=== PATIENT | male | born 1995 | race Caucasian/White ===

== ENCOUNTER 2023-10-03 03:32 | Emergency (ER) | payer MEDICAID, SELFPAY ==
[2023-10-03 03:32] VITALS: BP 163/94; PULSE 97; RESP 17; TEMP 36.6; O2SAT 98; BMI 37.7
--- NOTE | 2023-10-03 03:38 | RAD_ITS ---
STUDY: X-RAY CHEST REASON FOR EXAM: Male, 28 years old. Chest pain TECHNIQUE: PA and lateral views of the chest. COMPARISON: May 08, 2016 chest x-ray FINDINGS: The lungs are clear and expanded. There is no demonstrated pleural abnormality. Normal size heart. Normal mediastinum and erna. Normal visualized pulmonary arteries. Normal visualized aortic arch and descending thoracic aorta. There are mild degenerative changes of the visualized thoracic spine. Normal visualized ribs, clavicles, and shoulders. There is no demonstrated abnormality of the visualized soft tissue structures of the upper abdomen. RAD/Chest PA and Lateral IMPRESSION: Degenerative changes, as described above. No demonstrated acute cardiopulmonary process. Electronically Signed: Perla Chaves MD at 3:54 EDT ,
--- NOTE | 2023-10-03 03:47 | EKG12_ITS ---
Test Reason : CP Blood Pressure : / mmHG Vent. Rate : 101 BPM Atrial Rate : 101 BPM P-R Int : 154 ms QRS Dur : 092 ms QT Int : 338 ms P-R-T Axes : 049 006 051 degrees QTc Int : 438 ms Sinus tachycardia Otherwise normal ECG Confirmed by ERON FARRELL, LISA ([id number]), supervising editor news reel FRANCO HERNANDEZ ([id number]) on 10/14/2023 7:35:15 AM Referred By: ISAURO Confirmed By:SHANNA LITTLEJOHN MD
[2023-10-03 03:48] LABS: Absolute Lymphocyte Count 2.98 X10^3/uL (0.83-4.51); Absolute Neutrophil Count 8.6 X10^3/uL (2.0-7.7); Basophil# 0.09 X10^3/uL; Basophil% 0.7 % (0-1); Eosinophil# 0.39 X10^3/uL; Hematocrit 51.2 % (40-54); Hemoglobin 16.8 g/dL (13.0-16.5); Lymphocyte # 2.98 X10^3/ul (0.83-4.51); Lymphocyte % 22.7 % (19-41); Mean Corp Hgb Conc 32.8 g/dL (32-36); Mean Corpuscular Volume 91.4 fL (80-94); Mean Platelet Vol. 10.5 fl (6.2-12.0); Monocyte# 0.94 X10^3/uL; Monocyte% 7.2 % (0-10); NRBC Flagged by Analyzer 0 % (0-5); Neutrophil # 8.62 X10^3/uL (2.7-7.7); Neutrophil % 65.8 % (47-70); Platelet Count 294 K/mm3 (150-450); RBC Distribution Width CV 12.8 % (11.6-14.6); RBC Distribution Width SD 42.7 fl (35.1-43.9); White Blood Count 13.1 K/mm3 (4.4-11.0)
[2023-10-03 04:07] LABS: Anion Gap 5 (5-15); BUN 15 mg/dL (7-18); BUN/Creat Ratio 13.3 RATIO (10-20); Chloride 104 mmol/L (98-107); Creatinine, Serum 1.13 mg/dL (0.70-1.30); EST Glomerular Filtration Rate 81 mL/min (>60); Est Glom Filt Rate - Afr Amer 98 mL/min (>60); Glucose 143 mg/dL (74-106); Magnesium 2.1 mg/dL (1.6-2.6); Potassium 3.8 mmol/L (3.5-5.1); Sodium Level 137 mmol/L (136-145); Troponin-I HS 5 pg/mL (3.0-78.0)
[2023-10-03] MEDS: Aspirin 325 MG Tablet PO (04:22)
[2023-10-03 05:12] VITALS: BP 143/80; PULSE 94; RESP 18; O2SAT 96
--- NOTE | 2023-10-03 05:37 | EDS_ITS ---
HPI History of Present Illness Chief Complaint: Chest Pain Informant: patient and spouse/S.O. Narrative Narrative: Patient is a 28-year-old male with recently diagnosed hypertension. He states that he has had midsternal chest discomfort for multiple hours. He denies any nausea vomiting or diaphoresis associated with this. He denies any illicit drug use. He denies any history of DVT/PE. He states over that his mother did have a heart attack in her late 30s and with his chest discomfort he is concerned for this and therefore comes in for evaluation. [facility] Home Medications lisinopril 20 mg tablet 20 mg PO DAILY #30 tabs 10/03/23 [Rx Last Taken Unknown] Allergy/AdvReac Type Severity Reaction Status Date / Time amoxicillin Allergy Rash Verified 05/08/16 03:19 Penicillins [PCN] Allergy Rash Verified 05/08/16 03:19 Social History Smoking Status: Unknown if ever smoked ROS ROS ED Constitutional Constitutional ED: Denies chills or fever(s) Eyes Eyes: Denies change in vision ENT ENT ED: Denies sore throat Cardiovascular Cardiovascular: Reports chest pain; Denies palpitations or racing heartbeat Respiratory/Chest Respiratory/Chest: Denies cough or dyspnea Gastrointestinal Gastrointestinal: Denies abdominal pain, diarrhea, nausea or vomiting Genitourinary Genitourinary ED: Denies dysuria Musculoskeletal Musculoskeletal: Denies back pain or myalgias Integumentary Denies rash Neurologic Neurologic: Denies headache(s) Hematologic/Lymphatic Hematologic/Lymphatic: Denies easy bleeding or easy bruising EXAM Physical Exam Const Vital Signs: 10/03/23 03:32 10/03/23 03:32 10/03/23 05:12 Temperature 97.8 F Temperature Source Temporal Pulse Rate 97 94 Respiratory Rate 17 18 Respiratory Effort Normal Non-Labored Blood Pressure 163/94 H 143/80 H Blood Pressure Mean 117 101 Pulse Ox 98 96 Oxygen Delivery Method Room Air Room Air 10/03/23 06:13 Temperature Temperature Source Pulse Rate 83 Respiratory Rate 14 Respiratory Effort Blood Pressure 138/82 H Blood Pressure Mean 100 Pulse Ox 93 Oxygen Delivery Method Room Air Positive well nourished, well developed and obese General Appearance ED: well developed; Negative for pallor Nutritional Appearance: obese HEENT HEENT Narrative: Normocephalic atraumatic Eyes PERRL and EOMs intact bilaterally General Eye ED: Negative for scleral icterus Neck supple and no JVD Chest Wall Chest Narrative: There is mild reproducible anterior chest wall pain with palpation without bony deformity or crepitance Resp normal respiratory effort and clear to auscultation bilaterally Cardio regular rate and regular rhythm Rate: other Other Details: Heart is regular rate and rhythm without murmurs rubs or gallops Radial and carotid pulses are equal and symmetric GI normal to inspection, nondistended, normoactive bowel sounds, non-tender, non- distended and no masses GI Narrative: Abdomen is soft nontender nondistended with normal active bowel sounds. No voluntary guarding or rigidity No pulsatile mass or fluid wave Auscultation: normoactive bowel sounds Palpation: soft Extremity normal to inspection Extremity Narrative: No asymmetric edema no pitting edema negative Homans' sign bilaterally Neuro oriented x3, CN's II-XII intact bilaterally and no sensory deficits noted Sensorium / Orientation: alert Motor Exam: strength 5/5 throughout Psych mental status grossly normal Skin no rashes or lesions noted General Skin Exam: Negative for jaundice or pallor MDM MDM MDM Narrative Medical decision making narrative: Patient presented to the ER mildly hypertensive otherwise with stable vitals. He reported midsternal chest discomfort but did not have nausea vomiting or diaphoresis. He has newly diagnosed hypertension and smokes and has family history of heart disease at a relatively young age and as differential diagnosis includes acute coronary syndrome versus pericarditis versus pneumonia versus pneumothorax I did elect to perform a basic cardiac work-up. As the patient did not have any hypoxia or pleuritic chest pain I do not feel the need for a D- dimer. Chest x-ray revealed no acute lung pathology and without pain radiating to his back for widening of the mediastinum I do not feel need for a CTA. The patient was given aspirin secondary to his complaint of chest discomfort and without any other medication blood pressure spontaneously improved. Initial and 2-hour delta troponin were obtained which remained flat going against acute coronary syndrome. Therefore at this time as EKG does not show ischemic changes troponins are normal going against acute coronary syndrome and he does not have acute kidney injury or pneumonia or pneumothorax there is no need for further evaluation he is otherwise safe for discharge History & Record Review Discussion w/independent historian: Patient Lab Data Attestation: I reviewed the patient's lab results. Labs: Laboratory Results - last 24 hr 10/03/23 10/03/23 03:40 05:44 WBC 13.1 H RBC 5.60 Hgb 16.8 H Hct 51.2 MCV 91.4 MCH 30.0 MCHC 32.8 RDW Std Deviation 42.7 RDW Coeff of Mireille 12.8 Plt Count 294 MPV 10.5 Immature Gran % (Auto) 0.600 Neut % (Auto) 65.8 Lymph % (Auto) 22.7 Garden % (Auto) 7.2 Eos % (Auto) 3.0 Baso % (Auto) 0.7 Absolute Neuts (auto) 8.6 H Absolute Lymphs (auto) 2.98 Nucleated RBC % 0 Sodium 137 Potassium 3.8 Chloride 104 Carbon Dioxide 28.0 Anion Gap 5 BUN 15 Creatinine 1.13 Estim Creat Clear Calc 98.70 Est GFR (MDRD) Af Amer 98 Est GFR (MDRD) Non-Af 81 BUN/Creatinine Ratio 13.3 Glucose 143 H Calcium 9.0 Magnesium 2.1 Troponin I High Sens 5 5 Radiography Diagnostic Testing: Clinical Impression(s) from Imaging Studies Chest X-Ray 10/03/23 03:38 IMPRESSION: Degenerative changes, as described above. No demonstrated acute cardiopulmonary process. Electronically Signed: Perla Chaves MD at 3:54 EDT Reading Location ID and State: [facility] / [place] Tel , Service support , 2 view chest x-ray as interpreted by the emergency medicine physician reveals no acute infiltrate pneumothorax pleural effusion or widening of the mediastinum Discharge Plan Triage Chief Complaint: Chest Pain ED Provider: Warren Spencer Dx/Rx/DC Orders Clinical Impression: Nonspecific chest pain, Hypertension Instructions: ED Chest Pain, Uncertain Cause, ED Hypertension New Begin Treatment Prescriptions: New lisinopril 20 mg tablet 20 mg PO DAILY Qty: 30 1RF Primary Care Provider: Care Physician,No Primary Referrals: Alen Colon MD [Med Staff - Active Staff] - Care Physician,No Primary [Primary Care Provider] - Activity Restrictions/Additional Instructions: Please begin taking lisinopril as directed to control your hypertension. Continue to check your blood pressure once or twice a week to ensure the medication is effective. Follow-up with your family doctor and/or Dr. Colon for repeat evaluation and return to the ER should you have any further concerns or worsening of symptoms Disposition Disposition: Home, Self Care
[2023-10-03 06:06] LABS: Troponin-I HS 5 pg/mL (3.0-78.0)
[2023-10-03 06:13] VITALS: BP 138/82; PULSE 83; RESP 14; O2SAT 93
[2023-10-03 06:28] VITALS: BP 143/77; PULSE 80; RESP 16; O2SAT 92
== END 2023-10-03 06:29 | disposition home or self-care (01) ==
PROVIDERS: Emergency Provider Emergency Medicine; Visit Provider Emergency Medicine
DX: R07.9 Chest pain, unspecified (principal); I10 Essential (primary) hypertension; F17.200 Nicotine dependence, unspecified, uncomplicated; Z79.899 Other long term (current) drug therapy; E66.9 Obesity, unspecified
CPT/HCPCS: 71046; 80048; 83735; 84484; 85025; 93005; 99283; A4216

== ENCOUNTER 2023-12-20 00:59 | Emergency (ER) | payer MEDICAID, SELFPAY ==
[2023-12-20 01:00] VITALS: BP 181/93; PULSE 119; RESP 19; TEMP 37.1; O2SAT 95; BMI 35.4
--- NOTE | 2023-12-20 01:13 | RAD_ITS ---
INDICATION: chest pain EXAMINATION/TECHNIQUE: X-RAY - XR Chest 1 View AP portable. 1:17 AM COMPARISON: 10/03/2023 FINDINGS: LINES/DEVICES: None. LUNGS: No consolidation. No pneumothorax. MEDIASTINUM: Unremarkable. CARDIAC SILHOUETTE: Not enlarged. BONES AND SOFT TISSUES: No acute abnormalities. RAD/Chest 1 View (Portable) IMPRESSION: No evidence of active intrathoracic disease. Electronically Signed: Sandra Gamboa MD at 2:08 EST ,
--- NOTE | 2023-12-20 01:13 | EKG12_ITS ---
Test Reason : DYSRHYTHMIA Blood Pressure : / mmHG Vent. Rate : 118 BPM Atrial Rate : 118 BPM P-R Int : 168 ms QRS Dur : 098 ms QT Int : 310 ms P-R-T Axes : 045 022 038 degrees QTc Int : 434 ms Sinus tachycardia Otherwise normal ECG Confirmed by JOSETTE FARRELL, ELENA ([id number]), editor department GLORIA PAUL ([id number]) on 12/20/2023 10:30:02 AM Referred By: Confirmed By:ELENA FINCH MD
--- NOTE | 2023-12-20 01:14 | EX.ED.DYSGE1 ---
HPI History of Present Illness Chief Complaint: Hypertension Informant: patient and family Narrative Narrative: 28-year-old male presenting to the emergency room with chest pressure and hypertension. Patient states that he was seen in the emergency room 2 months ago started on lisinopril for new diagnosis of hypertension. He states that he called around trying to get a family doctor and it was 2 months wait for an appointment. Stop in 2 months and now he is out of his blood pressure medication. He ran out about 2 weeks ago. He states his blood pressure has been doing pretty good until today. States he just did not feel quite right had some mild chest discomfort felt a little rundown. Took his blood pressure was elevated and took it again later is even higher. He denies any headache or leg swelling. No urinary symptoms. Patient states he smokes about a half a pack per day. Familial history of coronary artery disease. PFSH PFS Medical History Hypertension Tobacco use Home Medications lisinopril 20 mg tablet 20 mg PO DAILY #30 tabs 10/03/23 [Rx Last Taken Unknown] lisinopril 20 mg tablet 20 mg PO DAILY #30 tabs 12/20/23 [Rx Last Taken Unknown] Allergy/AdvReac Type Severity Reaction Status Date / Time amoxicillin Allergy Rash Verified 12/20/23 01:00 Penicillins [PCN] Allergy Rash Verified 12/20/23 01:00 Social History Smoking Status: Light Smoker (<10/day) [facility] ED Constitutional Constitutional ED: Reports other Details: Fatigue ; Denies chills, fever(s) or weight loss Eyes Eyes: Denies change in vision or diplopia ENT ENT ED: Denies ear pain, rhinorrhea or sore throat Cardiovascular Cardiovascular: Reports chest pain; Denies orthopnea, palpitations or racing heartbeat Respiratory/Chest Respiratory/Chest: Denies cough, dyspnea or orthopnea Gastrointestinal Gastrointestinal: Denies abdominal pain, diarrhea, nausea or vomiting Genitourinary Genitourinary ED: Denies dysuria, hematuria or urinary frequency Musculoskeletal Musculoskeletal: Denies arthralgias or myalgias Integumentary Denies abscess or rash Neurologic Neurologic: Denies headache(s) or weakness Psychiatric Psychiatric: Denies anxiety, depression, suicidal ideation or suicidal thoughts Endocrine Endocrinology: Denies polydipsia, polyphagia or polyuria Allergic/Immunologic Allergic/Immunologic ED: Denies mouth swelling, tongue swelling or urticaria EXAM Physical Exam Const Vital Signs: 12/20/23 01:00 12/20/23 01:05 12/20/23 02:00 Temperature 98.8 F 98.1 F Temperature Source Temporal Temporal Pulse Rate 119 H 127 H Respiratory Rate 19 H 18 Respiratory Pattern Normal Blood Pressure 181/93 H 158/88 H Blood Pressure Mean 122 111 Pulse Ox 95 98 Oxygen Delivery Method Room Air Room Air Positive well nourished and well developed General Appearance ED: well developed HEENT Reports normocephalic, head/scalp atraumatic and moist mucous membranes Eyes PERRL and EOMs intact bilaterally Neck no lymphadenopathy, supple and no JVD Resp normal respiratory effort and clear to auscultation bilaterally Cardio regular rate, regular rhythm and no murmurs Rate: tachycardic GI normal to inspection, nondistended, normoactive bowel sounds and non-tender Palpation: soft Back/Spine no CVA tenderness and normal ROM Extremity normal to inspection General Extremety ED: Negative for edema General Extremity: Negative for edema Neuro oriented x3 and CN's II-XII intact bilaterally Sensorium / Orientation: alert Motor Exam: strength 5/5 throughout Psych mental status grossly normal Mood & Affect: Negative for depressed or tearful Skin no rashes or lesions noted and no wounds MDM MDM MDM Narrative Medical decision making narrative: White count nonspecifically elevated 15.6. Hemoglobin 15.8. Troponin is normal at 3. Creatinine 1.09. D-dimer normal. My independent interpretation of the chest x-ray is no acute process. EKG is a sinus tachycardia. He was given a dose of his lisinopril. Not sure if it was definitely the lisinopril or just resting his blood pressure came down. Heart rate when I exited interview was at 101. He is up ambulating to the bathroom without any difficulty. Patient will be given a prescription for his lisinopril. He needs to establish primary care. Continue to monitor blood pressure. Continue to work on smoking cessation and coronary artery disease risk modification such as increased exercise weight loss. Lab Data Attestation: I reviewed the patient's lab results. Labs: Laboratory Results - last 24 hr 12/20/23 01:08 WBC 15.6 H RBC 5.46 Hgb 15.8 Hct 49.6 MCV 90.8 MCH 28.9 MCHC 31.9 L RDW Std Deviation 43.5 RDW Coeff of Mireille 13.1 Plt Count 369 MPV 10.1 Immature Gran % (Auto) 0.800 Neut % (Auto) 71.3 H Lymph % (Auto) 19.9 Dillon % (Auto) 5.4 Eos % (Auto) 2.0 Baso % (Auto) 0.6 Absolute Neuts (auto) 11.2 H Absolute Lymphs (auto) 3.12 Nucleated RBC % 0 D-Dimer Quant (PE/DVT) < 0.27 L Sodium 138 Potassium 3.6 Chloride 106 Carbon Dioxide 26.0 Anion Gap 6 BUN 21 H Creatinine 1.09 Estim Creat Clear Calc 124.30 Est GFR (MDRD) Af Amer 102 Est GFR (MDRD) Non-Af 84 BUN/Creatinine Ratio 19.3 Glucose 184 H Calcium 9.3 Troponin I High Sens 3 Radiography Diagnostic Testing: Clinical Impression(s) from Imaging Studies Chest X-Ray 12/20/23 01:13 IMPRESSION: No evidence of active intrathoracic disease. Electronically Signed: Sandra Gamboa MD at 2:08 EST , EKG Initial EKG: Attestation: I personally reviewed and interpreted this EKG as follows: Comments: Sinus tachycardia with a ventricular rate of 118 bpm Discharge Plan Triage Chief Complaint: Hypertension Other Complaint: Chest Pain ED Provider: Juan R Lazcano Dx/Rx/DC Orders Clinical Impression: Chest pain, Hypertension Instructions: ED High Blood Pressure Hypertension Prescriptions: New lisinopril 20 mg tablet 20 mg PO DAILY Qty: 30 1RF Continued lisinopril 20 mg tablet 20 mg PO DAILY Qty: 30 1RF Primary Care Provider: Care Physician,No Primary Referrals: Care Physician,No Primary [Primary Care Provider] - Disposition Disposition: Home, Self Care Capacity Legal [employer] Operations Specialist Reflex Medical hold order details:: IF a medical hold is selected below, a suggested order for a MEDICAL HOLD will reflex upon signing the document. Next of kin: [place] law dictates a PRIORITY LIST for identifying legal decision-maker/legal next of kin in the following order (LNOK): 1st: The patient?s legal guardian, if any 2nd: The patient's spouse (if status is questionable, consult Risk Management) 3rd: The patient?s adult child(cortes) (majority, if multiple children) 4th: The patient?s parents 5th: The patient?s adult siblings (majority, if multiple children siblings)
[2023-12-20 01:20] LABS: Absolute Lymphocyte Count 3.12 X10^3/uL (0.83-4.51); Absolute Neutrophil Count 11.2 X10^3/uL (2.0-7.7); Basophil# 0.09 X10^3/uL; Basophil% 0.6 % (0-1); Eosinophil# 0.31 X10^3/uL; Hematocrit 49.6 % (40-54); Hemoglobin 15.8 g/dL (13.0-16.5); Lymphocyte # 3.12 X10^3/ul (0.83-4.51); Lymphocyte % 19.9 % (19-41); Mean Corp Hgb Conc 31.9 g/dL (32-36); Mean Corpuscular Hgb 28.9 pg (27.0-32.0); Mean Corpuscular Volume 90.8 fL (80-94); Mean Platelet Vol. 10.1 fl (6.2-12.0); Monocyte# 0.84 X10^3/uL; Monocyte% 5.4 % (0-10); NRBC Flagged by Analyzer 0 % (0-5); Neutrophil # 11.16 X10^3/uL (2.7-7.7); Neutrophil % 71.3 % (47-70); Platelet Count 369 K/mm3 (150-450); RBC Distribution Width CV 13.1 % (11.6-14.6); RBC Distribution Width SD 43.5 fl (35.1-43.9); Red Blood Count 5.46 M/mm3 (4.6-6.2); White Blood Count 15.6 K/mm3 (4.4-11.0)
[2023-12-20] MEDS: Lisinopril 20 MG Tablet PO (01:34)
[2023-12-20 01:39] LABS: Anion Gap 6 (5-15); BUN 21 mg/dL (7-18); BUN/Creat Ratio 19.3 RATIO (10-20); Calcium,Total 9.3 mg/dL (8.5-10.1); Chloride 106 mmol/L (98-107); Creatinine, Serum 1.09 mg/dL (0.70-1.30); EST Glomerular Filtration Rate 84 mL/min (>60); Est Glom Filt Rate - Afr Amer 102 mL/min (>60); Glucose 184 mg/dL (74-106); Potassium 3.6 mmol/L (3.5-5.1); Sodium Level 138 mmol/L (136-145); Troponin-I HS 3 pg/mL (3.0-78.0)
--- OUTSIDE RECORDS SUMMARY | 2023-12-20 01:39 | XMS RPT_ITS | CCD ---
Author Name Unknown Address [address] [place] [address] Organization [facility] Results Test Name Value Interpretation Reference Range Facil ity Procedures Date Procedure Procedure Detail Performing Clinician Start: 06-16-2019 Follow-up visit Summary Purpose Family History No Family History Records FoundNo Family History Records Found Advance Directives No Advanced Directives Records FoundNo Advanced Directives Records Found Additional Source Comments (unrecognized sect ion and content) No Status Records FoundNo Status Records Found INFORMATION SOURCE (unrecogn ized section and content) DATE CREATED AUTHOR AUTHOR'S ORGANIZ ATION 04/16/2020 [facility] FOR RECORDS PERTAINING TO PATIENTS WHO ARE OR HAVE BEEN ENROLLED IN A CHEMICAL DEPENDENCY/SUBSTANCEABUSE PROGRAM, SOME INFORMATION MAY BE OMITTED. This clinical summary was aggregated from multiple sources. Caution should be exercised in using it in the provision of clinical care. This summary normalizes information from multiple sources, and as a consequence, information in this document may materially change the coding, format and clinical context of patient data. In addition, data may be omitted in some cases. CLINICAL DECISIONS SHOULD BE BASED ON THE PRIMARY CLINICAL RECORDS. [facility] [employer] provides no warranty or guarantee of the accuracy or completeness of information in this document.
[2023-12-20 02:00] VITALS: BP 158/88; PULSE 127; RESP 18; TEMP 36.7; O2SAT 98
[2023-12-20 02:32] LABS: D-Dimer Quantitative (DVT/PE) < 0.27 FEU/ug/m (0.27-0.49)
[2023-12-20 03:23] VITALS: BP 160/92; PULSE 110; RESP 15; O2SAT 97
== END 2023-12-20 03:24 | disposition home or self-care (01) ==
PROVIDERS: Emergency Provider Emergency Medicine; Visit Provider Emergency Medicine
DX: R07.9 Chest pain, unspecified (principal); F17.200 Nicotine dependence, unspecified, uncomplicated; I10 Essential (primary) hypertension; Z79.899 Other long term (current) drug therapy
CPT/HCPCS: 71045; 80048; 84484; 85025; 85379; 93005; 99284; A4216

== ENCOUNTER → 2024-02-24 | Outpatient (CLI) | payer MEDICAID, SELFPAY ==
--- NOTE | 2024-02-24 13:03 | ECHOD_ITS ---
Reason For Study: HYPERTENSION Procedure This was a 2D Doppler, Color Flow transthoracic echocardiogram. Exam performed in department. Left Ventricle Normal LV size. Left ventricular systolic function is normal. The estimated ejection fraction is 65 %. No evidence for diastolic dysfunction. No regional wall motion abnormalities noted. Right Ventricle Normal RV size. Normal systolic function. Atria The left and right atria are normal. Mitral Valve The mitral valve is structurally normal. No prolapse or stenosis seen. Trivial mitral valve insufficiency. Tricuspid Valve Normal tricuspid valve. Trivial tricuspid valve insufficiency. Unable to estimate RV systolic pressure due to insufficient tricuspid regurgitant envelope. Aortic Valve Trisinus/trileaflet aortic valve. Pulmonic Valve Normal pulmonic valve. Great Vessels Normal aortic root. Pericardium/Pleural No pericardial effusion. MMode/2D Measurements & Calculations LVIDd: 4.9 cm IVSd: 1.0 cm LVOT diam: 2.1 cm LVIDs: 2.4 cm LVPWd: 0.91 cm LVOT area: 3.5 cm2 RVDd: 3.1 cm FS: 50.0 % Ao root diam: 3.5 cm LAV(MOD-bp): 24.5 ml LVAd ap4: 29.2 cm2 LAV(MOD-bp) Indexed: 11.0 ml/m2 LVLd ap4: 8.3 cm LAV(MOD-sp2): 37.0 ml EDV(MOD-sp4): 83.3 ml LAV(MOD-sp4): 16.5 ml EDV(sp4-el): 87.3 ml LVAs ap4: 14.3 cm2 LVLs ap4: 6.7 cm ESV(MOD-sp4): 26.6 ml ESV(sp4-el): 25.9 ml EF(MOD-sp4): 68.1 % EF(sp4-el): 70.4 % LVAd ap2: 28.4 cm2 SV(MOD-sp4): 56.7 ml SV(MOD-sp2): 54.2 ml LVLd ap2: 8.4 cm EDV(MOD-sp2): 79.7 ml EDV(sp2-el): 81.5 ml LVAs ap2: 13.8 cm2 LVLs ap2: 6.3 cm ESV(MOD-sp2): 25.5 ml ESV(sp2-el): 25.6 ml EF(MOD-sp2): 68.0 % SV(sp4-el): 61.4 ml LA dimension(2D): 3.5 cm LA A4 area: 9.5 cm2 RA A4 area: 14.1 cm2 TAPSE: 1.9 cm Time Measurements MV dec time: 0.13 sec Doppler Measurements & Calculations MV E max blaise: 86.3 cm/sec Lat Peak E' Blaise: 22.2 cm/sec Med Peak E' Blaise: 13.2 cm/sec MV A max blaise: 101.4 cm/sec E/E' lat: 3.9 E/E' med: 6.5 MV E/A: 0.85 Ao V2 max: 159.1 cm/sec LV V1 max: 119.5 cm/sec MV dec slope: 656.0 cm/sec2 Ao max P.1 mmHg LV V1 max P.7 mmHg Ao V2 mean: 103.6 cm/sec LV V1 mean P.1 mmHg Ao mean P.0 mmHg LV V1 mean: 81.0 cm/sec Ao V2 VTI: 25.7 cm LV V1 VTI: 20.4 cm AV (velocity ratio): 0.79 ZEYNEP(I,D): 2.7 cm2 ZEYNEP(V,D): 2.6 cm2 SV(LVOT): 70.3 ml PA V2 max: 152.7 cm/sec PA max PG (full): 3.0 mmHg ECHO/Echo Complete Interpretation Summary The estimated ejection fraction is 65 %. No evidence for diastolic dysfunction. Structually normal valves. Hepatic architecture appears somewhat coarse. Recommend ultrasound liver for fu rther evaluation. Ordering Physician: Arthur Rice Referring Physician: Arthur Rice Performed By: Carol Bowles RDCS
== END | disposition home or self-care (01) ==
LOC: CVS 12:58
PROVIDERS: Referring Provider Internal Medicine Cardiovascular Disease; Visit Provider Internal Medicine Cardiovascular Disease
DX: I10 Essential (primary) hypertension (principal); R07.89 Other chest pain
CPT/HCPCS: 93306